=== PATIENT | female | born 1950 | race Caucasian/White ===

== ENCOUNTER 2016-11-23 16:26 | Inpatient (IN) ==
--- NOTE | 2016-11-23 16:59 | ED EKG INTERP ---
This chart was entered by Ursula Vazquez Scribe, acting as scribe for Jose Enrique Mina MD. EKG Interpretation - EKG Time of EKG reading by physician:: 16:34 EKG Read and Signed by:: Jose Enrique Mina EKG Interpretation (*Must complete 3 of following elements*): Abnormal Rate: 77 Rhythm: AFIB WITH FREQUENT VENTRICULAR PACED COMPLEXES QRS: other (prolonged QT) [place] Interval: normal ST Wave: non-specific ST changes This chart was documented by the indicated scribe, (Ursula Vazquez Scribe) and accurately reflects the services I performed and decisions made by Leopoldo barragan W. Larry, MD, as attested by the provider's signature.
[2016-11-23] MEDS ORDERED: ASPIRIN PO STA (17:07)
[2016-11-23] MEDS ORDERED: CARDIZEM 100 MG/NS 100 MG/100 ML IVPB IV SCH (17:09)
[2016-11-23] MEDS ORDERED: CARDIZEM IV ONE (17:09)
[2016-11-23 17:44] LABS: MANUAL DIFF NEEDED? NO
[2016-11-23 17:48] LABS: BASO% 0.4 % (0.0-0.8); EOS# 0.14 X1000 (0.0-0.7); HEMATOCRIT 38.5 % (37.0-47.0); HEMOGLOBIN 12.8 g/dL (12.0-16.0); LYMPH# 1.97 X1000 (1.2-3.4); LYMPH% 28.1 % (20.5-51.1); MCH 31.5 PG (27-31); MCHC 33.2 g/dL (33-37); MCV 94.8 FL (81-99); MONO# 0.54 X1000 (0.11-0.59); MONO% 7.7 % (1.7-9.3); MPV 10.9 FL (7.4-10.4); NEUT% 61.8 % (42.2-75.2); PLT 262 X1000 (130-400); RBC 4.06 XMIL (4.2-5.4)
[2016-11-23 17:58] LABS: INR 1.08; PROTIME 11.4 Seconds (9.2-11.7); PTT 29.8 Seconds (22.0-36.0)
[2016-11-23 18:13] LABS: AGAP 13; ALBUMIN 4.2 g/dL (3.5-5.0); ALKALINE PHOSPHATASE 92 U/L (32-104); BUN 9 mg/dL (8-22); CALCIUM 8.9 mg/dL (8.8-10.2); CHLORIDE 102 mmol/L (98-107); CK PROFILE 66 U/L (24-173); COSMO 277; GOT 31 U/L (10-30); GPT 27 U/L (10-36); MAGNESIUM 1.6 mg/dL (1.5-2.7); POTASSIUM 3.5 mmol/L (3.5-5.1); SODIUM 139 mmol/L (136-145); TCO2 24 mmol/L (25-35); TOTAL BILIRUBIN 0.47 mg/dL (0.20-1.00); TOTAL PROTEIN 6.9 g/dL (6.3-8.3)
--- NOTE | 2016-11-23 18:38 | Diag Imaging Result Document ---
PROCEDURE NAME: CHEST-PORTABLE - 11/23/2016 PORTABLE CHEST: TIME: 1730 hours. FINDINGS: There is cardiomegaly. There is a pacemaker on the left. The lungs are better expanded and clearer than they were on 12/16/2015. There are no acute findings. IMPRESSION: Cardiomegaly.
[2016-11-23] MEDS ORDERED: MORPHINE IV ONE ×2 (20:50→21:15)
[2016-11-23] MEDS ORDERED: MORPHINE IV PRN ×2 (20:50→21:13)
[2016-11-23] MEDS: MORPHINE IV PRN (21:05)
[2016-11-23] MEDS ORDERED: MORPHINE ONE (21:07)
[2016-11-23] MEDS ORDERED: NITROGLYCERIN SL PRN (21:16)
[2016-11-23] MEDS ORDERED: TYLENOL PO PRN (21:16)
[2016-11-23] MEDS ORDERED: NS 1,000 ML IV ONE (21:16)
[2016-11-23] MEDS: CARDIZEM PO SCH (21:33)
--- NOTE | 2016-11-23 23:14 | HISTORY AND PHYSICAL ---
CHIEF COMPLAINT: Chest pain. HISTORY OF PRESENT ILLNESS: This is a 66-year-old female with history of atrial fibrillation, CAD who presents with recurrent chest pain. She has a pacemaker which can be interrogated. She had chest pain actually starting yesterday evening, left-sided, sharp in intensity, radiating to back. She had her pacer analyzed and it showed that she was in atrial fibrillation so she was told to come to the ER for evaluation. Patient states that her pacemaker is actually fairly old. She had been previously followed by Dr. Mckeon, and he recommended actually a pacemaker replacement soon although it has not been time for that at this point. In any case, last admission was actually in November. She was actually intubated at that time. Came in with an unresponsive episode. Fortunately she has recovered from that. In any case, today she was in atrial fibrillation with RVR controlled. I do not see that she was extremely fast. I see only heart rates in the 80s. Her EKG here showed atrial fibrillation with frequent ventricular pace comp but the rate was only in the 70s so she has not been in RVR but she has been placed on a Cardizem drip. She is still having intermittent chest pain. She was previously on Cardizem and sotalol. She is still taking that medication. The patient will be admitted for her atrial fibrillation which she is symptomatic from in addition to possibility that she may need her pacemaker re- evaluated and possibly even replaced. PAST MEDICAL HISTORY: 1. Atrial fibrillation. 2. Type 2 diabetes. 3. Essential hypertension. 4. Chronic pain disorder. PAST SURGICAL HISTORY: 1. She has a pacemaker. 2. She has had numerous back surgeries. SOCIAL HISTORY: Denies tobacco or ethanol. FAMILY HISTORY: She was not very close to her parents and does not know anything about the family history there. ALLERGIES: Reports no known drug allergies. MEDICATIONS: She currently takes Eliquis 5 b.i.d., Lipitor 40, Cardizem CD 240 , Zetia 10 daily, glipizide 5 daily, Cozaar 50 daily, omeprazole 20 daily, Betapace 120 b.i.d. REVIEW OF SYSTEMS: Otherwise all other systems reviewed and are negative. PHYSICAL EXAMINATION: VITAL SIGNS: Blood pressure 146/87, heart rate of 70, respiratory rate 13, 97% on room air. GENERAL: A well-developed female in no acute distress. NECK: Exam was supple. CARDIOVASCULAR: She was irregularly irregular rate and rhythm. No murmurs, gallops, or rubs. PULMONARY: Bilateral breath sounds. Clear to auscultation. GASTROINTESTINAL: Soft, nontender, nondistended. Bowel sounds are positive. EXTREMITIES: No clubbing or cyanosis. LYMPHATICS: No peripheral edema. NEUROLOGICAL: Nonfocal. LABORATORY DATA: Unremarkable. ProBNP is 1738. White count 1. Coags normal. Blood gas normal. Urine was normal. UDS was positive for opiates alone. Chest x-ray showed cardiomegaly. ASSESSMENT: Briefly a 66-year-old female presenting with symptomatic atrial fibrillation and chest pain. 1. Atrial fibrillation. She is not in rapid ventricular response but I guess she is usually sinus or paced. I am going to get them to try to interrogate her pacemaker. We will continue Cardizem and sotalol, obviously get Cardiology input after pacemaker evaluation and discussion about replacement. That will be Cardiology decision. At this point I am going to continue her anticoagulation and we will follow. 2. Chest pain which is atypical. We will give her treatment with morphine and follow clinically. Check serial cardiac enzymes and I am going to repeat her echo. It has been about a year since we have one here. 3. Diabetes. We will continue to monitor very closely. Continue her treatments and follow closely. cc: MD Jayy Arriaga MD [facility]
[2016-11-23] MEDS ORDERED: BOOSTRIX VACCINE ONE (23:19)
[2016-11-24] MEDS: ZETIA PO SCH ×2 (01:09→21:26)
[2016-11-24] MEDS: BETAPACE PO SCH ×3 (01:09→21:26)
[2016-11-24] MEDS: ELIQUIS PO SCH ×3 (01:09→21:26)
[2016-11-24] MEDS: LIPITOR PO SCH ×2 (01:09→21:26)
[2016-11-24] MEDS: MORPHINE IV PRN ×5 (02:07→21:25)
[2016-11-24] MEDS: CARDIZEM PO SCH ×2 (02:12→09:31)
[2016-11-24 05:46] LABS: HEMOGLOBIN A1C 6.2 % (4.8-6.0)
--- NOTE | 2016-11-24 05:54 | EKG Report ---
Test Performed on : 11/23/2016 7:47:09 PM Test Reason : CP Blood Pressure : / mmHG Vent. Rate : 070 BPM Atrial Rate : 208 BPM P-R Int : 000 ms QRS Dur : 154 ms QT Int : 502 ms P-R-T Axes : 000 -61 100 degrees QTc Int : 542 ms Wide QRS rhythm. Left axis deviation Left ventricular hypertrophy with QRS widening and repolarization abnormality Lateral infarct , age undetermined Inferior infarct , age undetermined Abnormal ECG When compared with ECG of 23-NOV-2016 16:34, (Unconfirmed) Wide QRS rhythm. has replaced Electronic ventricular pacemaker Unconfirmed Result
--- NOTE | 2016-11-24 05:57 | EKG Report ---
Test Performed on : 11/23/2016 4:34:12 PM Test Reason : Chest Pain Blood Pressure : / mmHG Vent. Rate : 077 BPM Atrial Rate : 078 BPM P-R Int : 000 ms QRS Dur : 086 ms QT Int : 440 ms P-R-T Axes : 000 050 -68 degrees QTc Int : 497 ms Atrial fibrillation. with frequent ventricular-paced complexes ST \T\ Marked T wave abnormality, consider inferior ischemia ST \T\ Marked T wave abnormality, consider anterolateral ischemia Prolonged QT Abnormal ECG When compared with ECG of 20-DEC-2015 00:08, Electronic ventricular pacemaker has replaced Atrial flutter. Unconfirmed Result
--- NOTE | 2016-11-24 05:57 | EKG Report ---
Test Performed on : 11/23/2016 9:26:08 PM Test Reason : Chest Pain Blood Pressure : / mmHG Vent. Rate : 070 BPM Atrial Rate : 067 BPM P-R Int : 000 ms QRS Dur : 160 ms QT Int : 512 ms P-R-T Axes : 000 -61 097 degrees QTc Int : 552 ms Ventricular-paced rhythm Abnormal ECG When compared with ECG of 23-NOV-2016 19:47, (Unconfirmed) Electronic ventricular pacemaker has replaced Wide QRS rhythm. Unconfirmed Result
[2016-11-24] MEDS: HUMULIN R SUBQ SCH ×4 (06:17→23:30)
[2016-11-24] MEDS: GLUCOTROL PO SCH (09:31)
[2016-11-24] MEDS: COZAAR PO SCH (09:31)
[2016-11-24] MEDS: PRILOSEC PO SCH (09:35)
--- NOTE | 2016-11-24 11:56 | CONSULTATION ---
DATE OF CONSULTATION: 11/24/2016 REASON FOR CONSULTATION: Patient admitted with atrial fibrillation and rapid ventricular rate, history of paroxysmal atrial fibrillation and chest pain. HISTORY OF PRESENT ILLNESS: Mr. Molly Pineda is a 66-year-old lady who has a permanent pacemaker and has paroxysmal atrial fibrillation, was in atrial fibrillation rapid ventricular rate and atrial flutter yesterday. She has been taking her medications regularly. Her pacemaker was interrogated yesterday and was advised to come to the emergency room. She was admitted and she experienced chest pain with this. Chest pain she describes as squeezing in sensation and at times pressure-like sensation. There is was no orthopnea or paroxysmal nocturnal dyspnea. As far as palpitations are concerned, she has paroxysmal atrial fibrillation. Has been experiencing the palpitations off and on for the last 1 year. REVIEW OF SYSTEMS: A 14-point review of system was done. GI System: There is no history of nausea, vomiting, diarrhea. There is no history of hematemesis or melena. Central Nervous System: No focal weakness to suggest a CVA, TIA. System: There is no dysuria or hematuria. Respiratory System: There is no history of cough, expectoration, hemoptysis. There is no history of fevers or chills. PAST MEDICAL HISTORY: 1. Paroxysmal atrial flutter/fibrillation. 2. Anticoagulation therapy. 3. Sick sinus syndrome status post [employer] device implanted 07/10/2011. 4. History of metabolic encephalopathy in 2016. 5. Atrial septal defect repaired as a child. 6. Hypertension. 7. Hyperlipidemia. 8. Diabetes. 9. Obesity. HOME MEDICATIONS: Include sotalol 120 b.i.d., Cardizem 240 mg a day, atorvastatin 40, Eliquis 5 b.i.d., omeprazole 20, losartan 50 daily, glipizide 5 mg. SOCIAL HISTORY: She does not smoke. Does not drink. ALLERGIES: There is no known allergies. PHYSICAL EXAMINATION: Vital Signs: Blood pressure was 144/66. Cardiovascular System: Normal jugular venous pressure. There no thyromegaly. No carotid bruit. First and second heart sounds were heard. There is no S3 gallop. Respiratory System: Normal air entry. There is no crepitations or rhonchi. Abdomen: Soft, obese, nontender. There was no guarding or rigidity. Bowel sounds were heard. Central Nervous System: Alert, oriented, was moving all 4 extremities. Extremities: Examination of extremities revealed no pedal edema. HEENT: Atraumatic, normocephalic. Pupils were equal and reacting to light. LABORATORY EXAMINATION: Revealed cardiac enzymes were negative. Sodium 139, potassium 3.5, BUN 9, creatinine 0.8, proBNP 1738. Hematology WBC 7.1, hemoglobin 12.8, hematocrit 38, platelet count of 262,000. ASSESSMENT AND PLAN: 1. Ms. Molly Pineda is a 66-year-old lady with history of atrial flutter/fibrillation, paroxysmal, permanent pacemaker implantation, atrial septal defect repair as a child, is admitted with atrial fibrillation with a rapid ventricular rate. She is currently in sinus rhythm, paced. We will continue with her home medications of sotalol and Cardizem CD at 240. We will get her to see a electrophysiology as an outpatient for consideration of ablation 2. As far as chest pains are concerned, given this, we will plan for a Cardiolite stress test to rule out ischemia. We will also get an echocardiogram to assess cardiac and valvular function. 3. For hypertension, blood pressure is under control. 4. Diabetes. Continue with the current medications. Thank you for the consult. We will follow hospital course. cc: Anibal Voss MD
--- NOTE | 2016-11-24 12:27 | EKG Report ---
Test Performed on : 11/24/2016 09:18:33 AM Test Reason : afib Blood Pressure : / mmHG Vent. Rate : 070 BPM Atrial Rate : 070 BPM P-R Int : 262 ms QRS Dur : 160 ms QT Int : 514 ms P-R-T Axes : 000 -62 105 degrees QTc Int : 555 ms AV dual-paced rhythm with prolonged AV conduction Poor capturing of atrial pacing Abnormal ECG When compared with ECG of 23-NOV-2016 21:26, No significant change was found Confirmed by Alma DAS, David Francois ([id number]) on 11/24/2016 5:54:19 PM
[2016-11-24] MEDS ORDERED: LEXISCAN ONE (13:00)
--- NOTE | 2016-11-24 13:45 | PROGRESS NOTE ---
DATE: 11/24/2016 SUBJECTIVE: The patient complains of chest pain this morning. She denies having any shortness of breath. OBJECTIVE: Vital Signs: Temperature 98 degrees, blood pressure 146/66, heart rate 68, respirations 16, O2 saturations 98% on room air. General: This is an elderly female, lying in bed, in no acute distress. Head is normocephalic, atraumatic. Heart: S1, S2. Normal. Regular rate and rhythm. Lungs clear to auscultation bilaterally. No wheezes, no rales, no rhonchi. Abdomen: Positive bowel sounds. Soft, nontender, nondistended. Extremities: No edema. No cyanosis. No calf tenderness. Neurologic: The patient is alert and oriented x3. LABORATORY DATA: Hemoglobin A1c 6.2. Troponins negative. ASSESSMENT AND PLAN: 1. Atrial fibrillation with rapid ventricular response. The patient appears to be in normal sinus rhythm. Will continue on the current cardiac medications. Cardiology is following. 2. Chest pain. So far the patient's cardiac enzymes have been negative. Further recommendations to follow by the ruby rails developer. 3. Diabetes mellitus, type 2. Stable. Continue on glipizide. 4. Hypertension. Continue on the current cardiac medications. 5. Dyslipidemia. Continue on Zetia. 6. Deep vein thrombosis prophylaxis. The patient is already on Eliquis due to her atrial fibrillation. cc: Joseline Queen MD
[2016-11-24] MEDS: ZOFRAN IV PRN ×2 (15:06→21:37)
[2016-11-24] MEDS: CARDIZEM CD PO SCH (15:22)
--- NOTE | 2016-11-24 17:02 | Diag Imaging Result Document ---
PROCEDURE NAME: MYOCARDIAL PERF SCAN, STR/REST - 11/24/2016 SUMMARY: The patient was administered 14.3 mCi of technetium-99m sestamibi after which resting cardiac images were obtained. The patient was subsequently stressed using a Lexiscan protocol. Following the administration of Lexiscan, the heart rate remained at 70 beats per minute. Blood pressure went from 149/84 to 143/81. With Lexiscan, the patient denied chest discomfort. Following the administration of Lexiscan, the patient was administered 41 mCi of technetium-99m sestamibi after which gated stress cardiac images were obtained. Baseline ECG demonstrated sinus rhythm with occasional atrial pacing and atrial sensed ventricular paced rhythm. With Lexiscan, ECG was nondiagnostic due to ventricular pacing. SPECT images were reconstructed in the short, horizontal, and vertical long axes. Review of these images is noteworthy for some increased gut uptake of radiopharmaceutical beneath the heart on both stress and resting images influencing imaging of the inferior wall. There is a small area diminished activity in the inferior apex of the left ventricle on stress images which appears similar on resting images. No significant reversibility is evident. Gated images demonstrate a calculated left ventricular ejection fraction of 66% with symmetrical wall motion. CONCLUSIONS: 1. Adequate response to Lexiscan. 2. Clinically negative for chest pain. 3. Electrocardiographically nondiagnostic due ventricular pacing. 4. Kathia scan sestamibi images probably influenced by increased gut uptake of radiopharmaceutical beneath the heart with small fixed area of diminished activity in the inferior apex but no significant reversibility. Study is scintigraphically negative for inducible myocardial ischemia. Small mild reversible defect in the inferior apex may be artifact related to diaphragm attenuation and/for increased gut uptake. However small infarctions area cannot entirely be excluded. Normal left ventricular systolic function demonstrated. cc: MD Dolores Rome PA
--- NOTE | 2016-11-24 20:04 | ECHO REPORT ---
ORDER DATE: 11/24/2016 ECHOCARDIOGRAM: MEASUREMENTS: Left ventricular end-diastolic diameter 4.9, end systolic diameter 3.0, posterior wall thickness 1.0, septal thickness 1.0, left atrium 5.0, aortic root 2.5. SUMMARY: 1. Fair quality study. 2. Very mild sclerosis of trileaflet aortic valve demonstrated with adequate aortic valve opening evident. Peak gradient across the aortic valve is 10 mmHg. Mitral and tricuspid valves are without structural abnormality with [id number] mitral regurgitation and mild tricuspid regurgitation. Pulmonic valve is without structural mild pulmonic insufficiency. Estimated systolic PA pressure is 35 to 40 mmHg. The aortic root is normal size. 3. Normal left ventricular dimension suggested. Estimated left ventricular ejection fraction is 65%. No regional wall motion abnormalities are evident. Left atrium is moderately enlarged. Right atrium and right ventricle are of normal size with grossly preserved right ventricular systolic performance. A pacemaker lead is evident in the right ventricle and right atrium. 1. No pericardial effusion. 2. Appearance of inferior vena cava suggests normal central venous pressure. CONCLUSION: 1. Mild aortic valve sclerosis without stenosis. 2. Mild to moderate mitral regurgitation. 3. Mild tricuspid regurgitation with estimated systolic PA pressure 35-40 mmHg. 4. Estimated left ventricular ejection fraction 65%. 5. Moderate left atrial enlargement. 6. Pacemaker leads in right atrium and right ventricle. cc: MD Trent Rome MD
[2016-11-25] MEDS: HUMULIN R SUBQ SCH ×2 (06:08→11:02)
[2016-11-25 06:51] LABS: BASO% 0.2 % (0.0-0.8); EOS# 0.07 X1000 (0.0-0.7); EOS% 1.1 % (0.0-10.0); HEMATOCRIT 33.3 % (37.0-47.0); HEMOGLOBIN 10.7 g/dL (12.0-16.0); LYMPH# 2.09 X1000 (1.2-3.4); LYMPH% 32.6 % (20.5-51.1); MANUAL DIFF NEEDED? NO; MCH 30.7 PG (27-31); MCHC 32.1 g/dL (33-37); MCV 95.7 FL (81-99); MONO# 0.51 X1000 (0.11-0.59); MONO% 7.9 % (1.7-9.3); MPV 11.3 FL (7.4-10.4); NEUT% 58.2 % (42.2-75.2); PLT 237 X1000 (130-400); RBC 3.48 XMIL (4.2-5.4)
[2016-11-25 07:01] LABS: AGAP 12; BUN 13 mg/dL (8-22); CALCIUM 9.2 mg/dL (8.8-10.2); CHLORIDE 106 mmol/L (98-107); COSMO 286; POTASSIUM 3.8 mmol/L (3.5-5.1); SODIUM 143 mmol/L (136-145); TCO2 25 mmol/L (25-35)
[2016-11-25] MEDS: COZAAR PO SCH (08:35)
[2016-11-25] MEDS: PRILOSEC PO SCH (08:35)
[2016-11-25] MEDS: GLUCOTROL PO SCH (08:35)
[2016-11-25] MEDS: BETAPACE PO SCH (08:35)
[2016-11-25] MEDS: CARDIZEM CD PO SCH (08:35)
[2016-11-25] MEDS: ELIQUIS PO SCH (08:35)
[2016-11-25 12:26] VITALS: BP 140/64
[2016-11-25] MEDS: ZOFRAN IV PRN (12:36)
--- NOTE | 2016-11-25 13:37 | PROGRESS NOTE ---
DATE: 11/25/2016 SUBJECTIVE: Ms. Pineda has had some episodic palpitations overnight. PHYSICAL EXAMINATION: She is afebrile. Heart rate is 72, blood pressure 140/64. General: She is in no acute distress. Cardiovascular: She sounds to be in an irregularly irregular rhythm. Telemetry currently shows what appears to be atrial fibrillation with occasional ventricular paced complexes. Chest: Exam sounds relatively clear to auscultation bilaterally. No increased work of breathing. Abdomen: Soft, nontender, nondistended. No obvious organomegaly. PERTINENT DATA: Her white count is 6.4, her hematocrit is 33, platelet count 237,000. Sodium is 143, potassium 3.8, BUN 13, creatinine 0.9. She did have an echo that showed [id number] MR. Mild aortic valve sclerosis. An EF of 65% was noted. She had a nuclear scan as well that did not seem to show any evidence of ischemia. ASSESSMENT: 1. Paroxysmal atrial fibrillation. 2. History of sick sinus syndrome, status post device implant. PLAN: Myocardial perfusion imaging seems to rule out any sort of ischemic signs. The patient currently has reasonable rate control of her atrial fibrillation. I believe she could likely be discharged from a cardiovascular standpoint. She is currently on Eliquis, diltiazem and continues on sotalol. cc: Saul García MD
[2016-11-26] MEDS ORDERED: GLUCOTROL PO SCH (09:00)
--- NOTE | 2016-11-27 05:40 | EKG Report ---
Test Performed on : 11/24/2016 9:23:12 PM Test Reason : Chest Pain and left facial weakness Blood Pressure : / mmHG Vent. Rate : 070 BPM Atrial Rate : 067 BPM P-R Int : 262 ms QRS Dur : 166 ms QT Int : 514 ms P-R-T Axes : 000 -62 099 degrees QTc Int : 555 ms AV dual-paced rhythm with prolonged AV conduction Abnormal ECG When compared with ECG of 24-NOV-2016 09:18, No significant change was found Confirmed by Alma DAS, David Francois ([id number]) on 11/27/2016 7:37:56 PM
--- NOTE | 2016-11-27 05:57 | EKG Report ---
Test Performed on : 11/25/2016 06:13:00 AM Test Reason : afib Blood Pressure : / mmHG Vent. Rate : 070 BPM Atrial Rate : 066 BPM P-R Int : 264 ms QRS Dur : 168 ms QT Int : 518 ms P-R-T Axes : 093 -68 095 degrees QTc Int : 559 ms AV dual-paced rhythm with prolonged AV conduction Abnormal ECG When compared with ECG of 24-NOV-2016 21:23, (Unconfirmed) No significant change was found Confirmed by Alma DAS, David Francois ([id number]) on 11/27/2016 7:47:26 PM
--- NOTE | 2016-12-01 13:41 | PROVIDER DOCUMENTATION ---
This chart was entered by Ursula Vazquez Scribe, acting as scribe for Jose Enrique Mina MD. HPI-Cardiac General - General Chief Complaint: Palpitations Stated Complaint: A FIB Time Seen by Provider: 11/23/16 16:58 Source: patient Allergies/Adverse Reactions: Patient Allergies Allergy/AdvReac Type Severity Reaction Status Date / Time No Known Allergies Allergy Verified 11/23/16 18:13 Home Medications: Home Medication List Medication Instructions Recorded Confirmed Last Taken Type Apixaban [Eliquis] 5 mg PO BID 12/09/15 11/23/16 11/23/16 07:00 History Atorvastatin Calcium 40 mg PO QHS 12/09/15 11/23/16 11/23/16 07:00 History Ezetimibe [Zetia] 10 mg PO QHS 12/09/15 11/23/16 11/23/16 07:00 History Losartan [Cozaar] 50 mg PO DAILY 12/09/15 11/23/16 11/23/16 07:00 History Omeprazole 20 mg PO QAM 12/09/15 11/23/16 11/23/16 07:00 History Diltiazem HCl [Cardizem Cd] 240 mg PO DAILY #30 cap.er.24h 12/20/15 11/23/1602/03 07:00 Rx Sotalol [Betapace] 120 mg PO BID 11/23/16 11/23/16 11/23/16 07:00 History Glipizide 2.5 mg PO QAM #0 11/25/16 11/23/16 11/23/16 07:00 Rx - History of Present Illness-Cardiac Nature of Presenting Problem: 66 y/o F presents to ED cc of afib. Pt has long history of afib and pacemaker . Pt started feeling heart palpations yesterday afternoon that has increasingly gotten worse over the night. Pt states she called the [facility] where they printed a script of the rhythm and pt was in afib. [facility] suggested come to ED. Pt is fatigued. Pt is alert and oriented. Location: reports: central Quality of Pain: reports: none Severity in ED: mild Onset/Duration: just prior to arrival Timing: still present Context/Activities at Onset: reports: light activity Palpitation Quality: fast/pounding heart beat History of arrythmia: reports: A-Fib Recent use of:: reports: no stimulants Associated Symptoms: reports: fatigue, weakness. denies: back pain, fever/ chills, nausea, shortness of breath, syncope Similar Symptoms Previously?: No Recently Seen Here or By Another Healthcare Provider: No Review of Systems - Adult - REVIEW OF SYSTEMS - ADULT Constitutional: denies: chills, fever Ears, Nose, Mouth & Throat: denies: ear pain, throat pain Cardiovascular: reports: irregular heart rate, palpitations. denies: chest pain , poor circulation Respiratory: denies: cough, shortness of breath Gastrointestinal: denies: abdominal pain, diarrhea, nausea, vomiting Genitourinary: denies: discharge, frequency Musculoskeletal: denies: bone pain, back pain Neurological: denies: dizziness/vertigo, headache/migraines Past History - Adult - PAST MEDICAL HISTORY-ADULT Review of Records: reports: Old Records Reviewed, Nursing Assessment Review Major Childhood Illnesses: reports: denies history Cardiovascular: reports: A-Fib, arrhythmia, HTN, hyperlipidemia, pacemaker Respiratory: reports: denies history Gastrointestinal: reports: GERD Obstetrical/Gynecological: reports: denies history Genitourinary: reports: denies history Musculoskeletal: reports: denies history Neurological: reports: denies history Endocrine/Immune: reports: Diabetes Other Conditions: reports: denies history - PRIOR SURGERIES/PROCEDURES Surgical/Procedure History: reports: pacemaker, hysterectomy, BTL, tonsillectomy , orthopedic (extremity), appendectomy, back/neck - IMMUNIZATION STATUS Childhood Immunizations: See Nurse Assessment Flu Vaccine: See Nurse Assessment - FAMILY HISTORY Family History: reviewed, not pertinent - SOCIAL HISTORY Smoking: denies, non-smoker Substance Use: denies Physical Exam-General - PHYSICAL EXAM-ADULT Initial Vital Signs Reviewed: Yes - CONSTITUTIONAL General Appearance: alert, no apparent distress - EYES Eyes: pink conjunctivae, fundi clear, no AV nicking - HEAD, EARS, NOSE, MOUTH & THROAT HENMT: moist mucous membranes, normal ENT inspection - NECK Neck: full range of motion - RESPIRATORY Respiratory: lungs clear, normal breath sounds - CARDIOVASCULAR Cardiovascular: normal peripheral pulses, regular rate, rhythm, no edema - GASTROINTESTINAL (ABDOMEN) Abdominal Exam: non tender, soft - MUSCULOSKELETAL Back Exam: no CVA tenderness, no vertebral tenderness Extremity: non-tender, normal gait - SKIN Integumentary: normal color, normal turgor, warm/dry - NEUROLOGIC Neurologic: grossly normal, no motor/sensory deficits - PSYCHIATRIC Psych/Mental Status: oriented x 3 Progress - PLAN OF CARE/RESULTS Progress/Plan/Lab Results: Orders Category Date Time Status Admit - [facility] - [facility] Routine AdmDCTranf 11/23/16 21:16 Ordered Activity - Bed Rest with BRP ORDERED Care 11/23/16 21:16 Active Cardiac Monitoring DIRECTED Care 11/23/16 17:07 Active FSBS/Accucheck Result AC + HS Care 11/23/16 21:16 Active Neurological Check Q4H Care 11/23/16 21:16 Completed Nursing [Misc. NRSG Communication Order] DIRECTED Care 11/23/16 21:16 Active Nursing- MD Consult Request ROUTINE Care 11/23/16 21:16 Active Oxygen Therapy- ED Nursing DIRECTED Care 11/23/16 17:07 Active Saline Loc NOW Care 11/23/16 17:07 Completed Vital Signs Order Q 8-HR .ASSESS Care 11/23/16 21:16 Active MD [Physician/Provider Consults] Routine Cons 11/23/16 21:16 Ordered Diabetic Diet Diet 11/23/16 20:50 Completed CHEST-PORTABLE [RAD] Stat Exams 11/23/16 17:09 Completed A1C HGB W EST AVG GLUCOSE [CHEM] Routine Lab 11/24/16 04:56 Completed CBC WITH ELECTRONIC DIFF [HEME] Stat Lab 11/23/16 17:28 Completed CK PROFILE [SP CHEM] Q4H Lab 11/23/16 21:55 Completed CK PROFILE [SP CHEM] Q4H Lab 11/24/16 01:03 Completed CK PROFILE [SP CHEM] Stat Lab 11/23/16 17:28 Completed COMPREHENSIVE METABOLIC PANEL [CHEM] Stat Lab 11/23/16 17:28 Completed MAGNESIUM [CHEM] Stat Lab 11/23/16 17:28 Completed PRO B-NATRIURETIC PEPTIDE Stat Lab 11/23/16 17:28 Completed PROTIME WITH INR [COAG] Stat Lab 11/23/16 17:28 Completed PTT [COAG] Stat Lab 11/23/16 17:28 Completed TROPONIN T Q4H Lab 11/23/16 21:55 Completed TROPONIN T Q4H Lab 11/24/16 01:03 Completed TROPONIN T Stat Lab 11/23/16 17:28 Completed 0.9% Sodium Chloride Inj [Ns] 1,000 ml Med 11/23/16 21:16 Discontinued IV 75 mls/hr ATORVAstatin [Lipitor] Med 11/23/16 21:00 Discontinued 40 mg PO QHS Acetaminophen [Tylenol] Med 11/23/16 21:16 Discontinued 650 mg PO Q6H PRN PRN Apixaban [Eliquis] Med 11/23/16 21:00 Discontinued 5 mg PO BID Aspirin Med 11/23/16 17:07 Discontinued 325 mg PO STAT STA Diltiazem 100 mg/Ns [Cardizem 100 mg/Ns] Med 11/23/16 17:09 Discontinued 100 mg in 100 ml IV 5 mg/hr Diltiazem [Cardizem] Med 11/23/16 17:09 Discontinued 10 mg IV NOW ONE Diltiazem [Cardizem] Med 11/23/16 21:00 Discontinued 60 mg PO Q6HR Diph,Pertuss(Acell),Tet Vac/Pf [Boostrix Vaccine] Med 11/23/16 23:19 Discontinued 0.5 ml .ROUTE .STK-MED ONE Ezetimibe [Zetia] Med 11/23/16 21:00 Discontinued 10 mg PO QHS Glipizide [Glucotrol] Med 11/24/16 09:00 Discontinued 5 mg PO QAM Insulin Human Regular [Humulin R] Med 11/24/16 07:00 Discontinued See Protocol SUBQ 0700,1100,1600,2100 Losartan [Cozaar] Med 11/24/16 09:00 Discontinued 50 mg PO DAILY Morphine Med 11/23/16 20:50 Discontinued 2 IV Q4H PRN PRN Morphine Med 11/23/16 21:07 Discontinued 2 mg .ROUTE .STK-MED ONE Morphine Med 11/23/16 21:15 Discontinued 2 mg IV NOW ONE Morphine Med 11/23/16 21:16 Discontinued 2 mg IV Q4H PRN Morphine Med 11/23/16 21:13 Discontinued See Dose Instructions IV Q4H PRN PRN Nitroglycerin Sl [Nitroglycerin] Med 11/23/16 21:16 Discontinued 0.4 mg SL Q5M PRN PRN Omeprazole [Prilosec] Med 11/24/16 09:00 Discontinued 20 mg PO QAM Ondansetron [Zofran] Med 11/23/16 21:16 Discontinued 4 mg IV Q4H PRN PRN Sotalol [Betapace] Med 11/23/16 21:00 Discontinued 120 mg PO BID O2 Per Protocol Routine Oth 11/23/16 21:16 Completed Telemetry [OM.EQ] Routine Oth 11/23/16 21:16 Active EKG [EKG] Stat Ther 11/23/16 17:07 Draft EKG [EKG] Stat Ther 11/23/16 19:46 Draft Echo Spec/Color Dop W/O Contra Routine Ther 11/24/16 06:00 Draft Transfer/Admit Order [TRANSFER] Routine Transfer 11/23/16 20:25 Completed Transfer/Admit Order [TRANSFER] Routine Transfer 11/23/16 23:35 Completed PLAN: MONITOR PT Result Diagrams: 11/25/16 06:00 11/25/16 05:14 - XRAY 1 XRAY: Bilateral XRAY Study: Chest Impression: Normal XRAY Interpretation: Unchanged from prior - CHANGE OF SHIFT REPORT (ED Provider) Report Given and Care Transferred to:: Time of Transfer: 18:00 Items Pending: Labs, Physician Consult/Arrival Departure - Departure Time of Disposition Decision: 18:05 DIAGNOSIS: Afib Disposition: ADMITTED INPATIENT 09 Certified Medical Emergency: Emergent Condition: Stable This chart was documented by the indicated scribe, (Ursula Vazquez, Ame) and accurately reflects the services I performed and decisions made by Leopoldo barragan W. Larry, MD, as attested by the provider's signature.
--- NOTE | 2016-12-03 21:19 | DISCHARGE SUMMARY ---
ADMISSION DATE: 11/24/2016 DISCHARGE DATE: 11/25/2016 FINAL DISCHARGE DIAGNOSES: 1. Paroxysmal atrial fibrillation. 2. Chest pain. 3. Diabetes mellitus type 2. 4. Hypertension. 5. Dyslipidemia. CONSULTATIONS REQUESTED DURING THIS HOSPITAL STAY: Cardiology consultation. HOSPITAL COURSE: Ms. Pineda is a 66-year-old female with a history of diabetes and atrial fibrillation who presented to the ER with chest pain. The patient was admitted to the hospitalist service and serial cardiac enzymes were obtained. The patient on admission was noted to be in atrial fibrillation with rapid ventricular response. Cardiology was consulted for further recommendations. The patient underwent a myocardial perfusion scan that was noted to be normal. The patient's heart rate did improve over the course of the hospitalization. The patient was already on Eliquis prior to admission and this was continued throughout the hospital stay. The patient improved clinically and was cleared for discharge home on 11/25/2016. DISCHARGE MEDICATIONS: 1. Omeprazole 20 mg p.o. daily. 2. Eliquis 5 mg p.o. twice a day. 3. Lipitor 40 mg p.o. at bedtime. 4. Zetia 10 mg p.o. at bedtime. 5. Cozaar 50 mg p.o. daily. 6. Cardizem CD 240 mg p.o. daily. 7. Sotalol 120 mg p.o. twice a day. DISCHARGE DIET: Low sodium, low cholesterol diet. ACTIVITY: As tolerated. FOLLOWUP INSTRUCTIONS: The patient has been advised to follow up with Dr. Carvajal in 1 week. cc: Joseline Queen MD
== END 2016-11-25 14:46 | disposition home or self-care (01) ==
LOC: ED 16:26 → SUATTDRO 11-24 00:25 → 3S 11-24 00:25
PROVIDERS: ATTEND Internal Medicine